=== PATIENT | female | born 1995 | race Caucasian/White ===

== ENCOUNTER 2016-07-08 14:25 | Emergency (ER) | payer BC ==
[~2016-07-08 14:25] MED LIST: BENADRYL25 MG PO; LOTRIMIN AF24 GM TP; NO MEDICATIONS; NO MEDS; NORCO 5/325 TAB1 TAB PO; RISPERDAL1 M1 PO; TYLENOL #31 TA1 PO; VYVANSE50 MG PO; ZOFRAN ODT4 MG/UDTAB PO; ZOVIRAX400 MG PO
== END 2016-07-08 16:00 ==
LOC: EDMED 14:25
DX: N93.9 Abnormal uterine and vaginal bleeding, unspecified (principal); Z90.89 Acquired absence of other organs; Z90.49 Acquired absence of other specified parts of digestive tract; F17.200 Nicotine dependence, unspecified, uncomplicated